=== PATIENT | male | born 1985 ===

== ENCOUNTER 2025-05-29 06:18 | Day surgery (SDC) | payer BC, SELFPAY | END 2025-05-29 10:47 | disposition home or self-care (01) | LOC: GI 06:18 | PROVIDERS: ATTENDING PHYSICIAN Internal Medicine Gastroenterology | DX: Z12.11 Encounter for screening for malignant neoplasm of colon (principal); Z80.0 Family history of malignant neoplasm of digestive organs; Q43.8 Other specified congenital malformations of intestine | CPT/HCPCS: G0105 ==